=== PATIENT | male | born 1975 ===

== ENCOUNTER 2017-11-07 12:58 | Emergency (ER) | payer OTHER ==
[2017-11-07 13:05] VITALS: BP 147/100; PULSE 74; TEMP 97.8; O2SAT 98
--- NOTE | 2017-11-07 13:11 | ED PDOC ---
HPI: Wound Care - HPI Time Seen by Provider: 11/07/17 13:08 Chief Complaint (Nursing): Finger,Hand,&Wrist Chief Complaint (Provider): finger Injury History Per: Patient History Of Present Illness: 42 year old male presents to the emergency department with an injury to his finger. The patient reports that yesterday around 8pm (>17 hours ago) he was using a slicing machine when his hand slipped causing him to accidentally cut his left fifth digit. Onset/Duration Of Symptoms: Days Current Symptoms Are (Timing): Still Present Severity: None Past Medical History Reviewed: Historical Data, Nursing Documentation Vital Signs: Last Vital Signs Temp 97.8 F 11/07/17 13:04 Pulse 74 11/07/17 13:04 Resp BP 147/100 H 11/07/17 13:04 Pulse Ox 98 11/07/17 13:04 - Medical History PMH: No Chronic Diseases - Surgical History Surgical History: No Surg Hx - Family History Family History: States: No Known Family Hx - Social History Current smoker - smoking cessation education provided: No Alcohol: None Drugs: Denies - Home Medications Home Medications: Ambulatory Orders Medication Instructions Recorded Cephalexin [Keflex] 500 mg PO Q8 #15 capsule 11/07/17 - Allergies Allergies/Adverse Reactions: Allergies Allergy/AdvReac Type Severity Reaction Status Date / Time No Known Allergies Allergy Verified 11/07/17 13:06 Review of Systems Constitutional: Negative for: Fever, Chills Musculoskeletal: Positive for: Other (laceration to left fifth digit) Physical Exam - Reviewed Nursing Documentation Reviewed: Yes Vital Signs Reviewed: Yes - Physical Exam Appears: Positive for: Non-toxic, No Acute Distress Skin: Positive for: Normal Color, Warm, Dry. Negative for: Rash Extremity: Positive for: Normal ROM (Full MURGUIA of left hand), Other (2.5cm flap laceration to volar surface of fifth digit by distal phalanx ). Negative for: Deformity, Swelling Neurologic/Psych: Positive for: Alert, Oriented, Gait - ECG O2 Sat by Pulse Oximetry: 98 (RA) Pulse Ox Interpretation: Normal - Progress ED Course And Treament: TDAP 0.5 ML IM X 1 DOSE Medical Decision Making Medical Decision Makin Initial Impression 42 year old male presenting with finger laceration Initial Plan: * Reevaluation 1320 Wound cleansed with NS and small amount of betadine. Steri strips used to approximate wound edges. KATERINA JACOBSON, thank you for letting us take care of you today. Your provider was Silvana Tanner MD and you were treated for FINGER INJURY. The emergency medical care you received today was directed at your acute symptoms. If you were prescribed any medication, please fill it and take as directed. It may take several days for your symptoms to resolve. Return to the Emergency Department if your symptoms worsen, do not improve, or if you have any other problems. Please contact your doctor or call one of the physicians/clinics you have been referred to that are listed on the Patient Visit Information form that is included in your discharge packet. Bring any paperwork you were given at discharge with you along with any medications you are taking to your follow up visit. Our treatment cannot replace ongoing medical care by a primary care provider outside of the emergency department. Thank you for allowing the [facility] team to be part of your care today. Documented by Martine Gurrola acting as a scribe for Jacqueline Hammonds PA-C. All medical record entries made by the Scribe were at my direction and personally dictated by me. I have reviewed the chart and agree that the record accurately reflects my personal performance of the history, physical exam, medical decision making, and the department course for this patient. I have also personally directed, reviewed, and agree with the discharge instructions and disposition. Disposition - Clinical Impression Clinical Impression: Finger laceration - Patient ED Disposition Is Patient to be Admitted: No Counseled Patient/Family Regarding: Studies Performed, Diagnosis - Disposition Referrals: [facility] [Outside] Disposition: Routine/Home Disposition Time: 13:30 Condition: FAIR Additional Instructions: FOLLOW UP IN 2-3 DAYS FOR WOUND EVALUATION Prescriptions: Cephalexin [Keflex] 500 mg PO Q8 #15 capsule Instructions: Wound Care (DC) Forms: [facility] ED School/Work Excuse - POA Present On Arrival: None
[2017-11-07] MEDS ORDERED: Tdap Vaccine 0.5 ml Vial (10-64 yrs) IM ONE ×2 (13:31→13:37)
== END 2017-11-07 14:04 | disposition home or self-care (01) ==
LOC: H.ER 12:58
DX: S61.212A Laceration without foreign body of right middle finger without damage to nail, initial encounter (principal); W26.8XXA Contact with other sharp object(s), not elsewhere classified, initial encounter; Y92.89 Other specified places as the place of occurrence of the external cause

== ENCOUNTER 2017-11-09 14:09 | Emergency (ER) | payer OTHER ==
[2017-11-09 14:28] VITALS: BP 139/85; PULSE 77; RESP 20; TEMP 98.5; O2SAT 100
--- NOTE | 2017-11-09 15:25 | ED PDOC ---
HPI: Wound Care - HPI Time Seen by Provider: 11/09/17 15:20 Chief Complaint (Nursing): Wound Check Additional Complaint(s): 42-year-old male, presents to the emergency department for evaluation of wound. Patient was seen in ED two days ago for an injury to his left fifth finger. Pt returns today for wound check. No other complaints at this time. Past Medical History Reviewed: Historical Data, Nursing Documentation, Vital Signs Vital Signs: Last Vital Signs Temp 98.5 F 11/09/17 14:26 Pulse 77 11/09/17 14:26 Resp 20 11/09/17 14:26 BP 139/85 11/09/17 14:26 Pulse Ox 100 11/09/17 14:26 - Family History Family History: States: No Known Family Hx - Home Medications Home Medications: Ambulatory Orders Medication Instructions Recorded Cephalexin [Keflex] 500 mg PO Q8 #15 capsule 11/07/17 - Allergies Allergies/Adverse Reactions: Allergies Allergy/AdvReac Type Severity Reaction Status Date / Time No Known Allergies Allergy Verified 11/09/17 14:26 Review of Systems Constitutional: Negative for: Fever, Chills Neurological: Negative for: Weakness, Numbness Physical Exam - Reviewed Nursing Documentation Reviewed: Yes Vital Signs Reviewed: Yes - Physical Exam Appears: Positive for: Non-toxic, No Acute Distress Skin: Positive for: Warm, Dry. Negative for: Rash Neck: Positive for: Painless ROM Respiratory: Negative for: Accessory Muscle Use Extremity: Positive for: Normal ROM, Other (Left upper extremity: 5th digit, steri strips intact, wound is healing. No erythema, warmth or discharge. No infectious process). Negative for: Deformity, Swelling Neurologic/Psych: Positive for: Alert, Oriented - ECG O2 Sat by Pulse Oximetry: 100 Medical Decision Making Medical Decision Making: Impression Wound check Prior Visits Notes and records from previous visits were reviewed. Patient was seen in ED on 11/07 for injury to left 5th digit upper extremity. Plan: Left 5th digit, steri strips intact, dressing removed and bacitracin applied. Scribe Attestation: Documented by Alyse Vera, acting as a scribe for LUCIE Bowman. Provider Scribe Attestation: All medical record entries made by the Scribe were at my direction and personally dictated by me. I have reviewed the chart and agree that the record accurately reflects my personal performance of the history, physical exam, medical decision making, and the department course for this patient. I have also personally directed, reviewed, and agree with the discharge instructions and disposition. Disposition - Clinical Impression Clinical Impression: Visit for wound check - Patient ED Disposition Is Patient to be Admitted: No - Disposition Disposition: Routine/Home Disposition Time: 15:25 Condition: FAIR Instructions: Wound Care (DC) Print Language: TELUGU
== END 2017-11-09 15:35 | disposition home or self-care (01) ==
LOC: H.ER 14:09
DX: Z48.00 Encounter for change or removal of nonsurgical wound dressing (principal)